=== PATIENT | male | born 1990 | race Caucasian/White ===

== ENCOUNTER 2020-08-15 14:57 | Outpatient (CLI) | payer OTHER ==
--- NOTE | 2020-08-15 15:52 | SLEEP CARE CONSULTATION ---
Information from patient questionnaire entered by Su Jackson. I have reviewed and concur with the information entered by Su Jackson. This document represents the service I personally performed and the decisions made by me, January Morelos MD, [facility]. History of Present Illness Service Date and Time: 08/15/2020 1457 Reason for Visit: New patient Chief Complaint: reports: Unrefreshed sleep, Snoring, Excessive daytime sleepiness, Observed pauses in breathing, Fatigue, Frequent awakenings at night Date of Onset: years Usual bedtime: 10 pm Time it takes to fall asleep: 30 minutes Snores at night: Yes Observed to quit breathing while asleep: Yes Sleeps alone due to snoring: No Number of times waking at night: 2-3 Reasons for waking at night: reports: Other (depends) Toss, Turn, or Twitch while sleeping: Yes Recalls having dreams: No Usually gets out of bed at: 7 am Feels refreshed in the morning: No Morning headache: No Sleepy or fatigued during the day: Yes Ever fallen asleep while driving: No Takes day naps: No Dreams during day naps: Yes Prior sleep studies: No Additional HPI information: I had the pleasure of seeing Mr. Goodman today regarding the possibility of him having a sleep disorder. As you know, he is a 30 year old gentleman who complains of loud snore, observed apneas, and excessive daytime sleepiness. The patient tells me that he normally goes to bed around 10 pm, and it takes him approximately 30 minutes to fall asleep. He has been told that he snores loudly and irregularly at night. He has also been observed to stop breathing in his sleep. His can still sleep in the same bed. He can recall waking up on the average of 2 - 3 times during the night. Most of the time he wakes up because of variety of reasons. He has never awakened because of his own snoring, choking, or having to gasp for air. There is a lot of tossing and turning in his sleep. He has somniloquy (sleep talking) but not somnambulism (sleep walking). Generally there is no recollection of dreams. In the morning he usually gets up out of the bed around 7 a.m. not feeling refreshed nor rested. He usually does not have a morning headache. During the day he complains of feeling sleepy and fatigued. His score on Valdez Sleepiness Scale is 12 out of 24. He never has fallen asleep while driving nor has had any accident due to sleepiness. He usually does not take naps during the day. Upon falling asleep during the day he reports having dreams. He has never had sleep paralysis, experienced cataplexy or symptoms of restless leg syndrome. He reports having impaired concentration during the day. - Parasomnia Symptoms Ever been unable to move upon waking from sleep: No (maybe) Ever felt weak in the knees when startled or emotional: No Bothered by creepy, crawly, restless sensations in legs: No Problems with memory or concentration: Yes Subjective Initial Valdez Sleepiness Scale score: 12 (in 2020) Past Medical History Past Medical History: reports: Asthma Social History The patient's occupation is a [employer]. Patient is and lives in [place]. Have you smoked in the past 12 months: No Alcohol use: Yes Alcohol amount and frequency: 1 drink 1 time a week Caffeine use: Yes Caffeine amount and frequency: alot Family History Family history of sleep disordered breathing: Yes (father) Allergies and Home Medications Drug allergies reviewed: Yes Home medication list reviewed: Yes Review of Systems Cardiovascular: denies: high blood pressure, palpitations, chest pain, irregular heart rate or pulse, leg or foot swelling, have to sleep sitting up, other Respiratory: reports: wheeze Gastrointestinal: denies: heartburn, difficulty swallowing, nausea, vomitting, diarrhea, abdominal pain, other Neurological: reports: headaches Psychiatric: denies: Attention Deficit Hyperactivity, anxiety, depression, mood disorder, claustrophobia, other Ear/Nose/Throat: reports: wisdom teeth removed Endocrine: reports: sluggishness Musculoskeletal: reports: neck pain, back pain Immunologic: reports: sneezing Physical Exam Vital signs obtained and entered by: Dr. Morelos Blood Pressure: 92/60 Cuff size: regular Heart Rate: 65 O2 Saturation: 98 Height: 5 ft 10 in Weight: 160 lb Body Mass Index: 22.9 BMI Classification: Healthy weight Neck circumference: 15.5 Mood/affect: Normal HEENT: No craniofacial malformation Nostrils: partially obstructed Turbinates: swollen Mouth and throat: narrow oropharynx Soft palate: long Hard palate: normal Uvula: normal Uvula visualization: 50% Mallampati Class II Tongue: normal in size Tonsils: small Chin and jaw: normal size and position Neck: normal w/o lymphadenopathy or thyromegaly Impression and Plan IMPRESSION: 1. Obstructive Sleep Apnea-Hypopnea Syndrome, as suggested by history of loud and irregular snoring, observed cessation of breath while asleep, frequent awakenings during the night, unrefreshed sleep, cognitive impairment, and daytime hypersomnolence. Narrow oropharynx is a common predisposing factor for obstructive sleep apnea-hypopnea syndrome. I recommend proceeding to polysomnography to confirm the diagnosis and to assess severity. If he has significant sleep disordered breathing, a manual CPAP titration study will also be performed to find the optimal treatment pressure. I informed the patient of what the sleep studies involve and after some discussion, he agreed to proceed. However, because of the long waiting list for the in-laboratory polysomnography, a home sleep apnea test (HSAT) will first be performed. Plan: 1. Schedule a home sleep apnea test (HSAT). 2. Return for a follow up after the test. Visit Type: In Office Time Spent with Patient (minutes): 15 Provider Statement: I spent 100% of the Face to Face Visit with the patient with greater than 50% spent counseling the patient and coordination of care.
[2020-08-15 15:53] VITALS: BP 92/60
== END 2020-08-15 14:58 | disposition home or self-care (01) ==
LOC: SC 14:57
PROVIDERS: ATTEND Internal Medicine Pulmonary Disease
DX: R06.83 Snoring (principal); R06.81 Apnea, not elsewhere classified; G47.8 Other sleep disorders; R41.89 Other symptoms and signs involving cognitive functions and awareness; G47.10 Hypersomnia, unspecified
CPT/HCPCS: 99202; 99212

== ENCOUNTER 2020-09-12 14:12 | Outpatient (CLI) | payer OTHER | END 2020-09-12 14:13 | disposition home or self-care (01) | LOC: SC 14:12 | PROVIDERS: ATTEND Internal Medicine Pulmonary Disease | DX: Z53.9 Procedure and treatment not carried out, unspecified reason (principal) | CPT/HCPCS: 95806 ==

== ENCOUNTER 2020-09-14 16:26 | Outpatient (CLI) | payer OTHER ==
--- NOTE | 2020-09-14 16:40 | SLEEP CARE CONSULTATION ---
Information from patient questionnaire entered by Pierce Champion. I have reviewed and concur with the information entered by Pierce Champion. This document represents the service I personally performed and the decisions made by me, Darby Dewitt ARNP. History of Present Illness Service Date and Time: 09/14/2020 1620 Initial [place] Sleepiness Scale score: 12 (in 2020) Current Stan[place] Sleepiness Scale score: 13 Additional HPI information: AL VILLAR returns via Telehealth visit to discuss the recently incomplete home sleep study. His brother noticed he was choking in his sleep. He feels fatigued all the time. He chews tobacco to stay awake. He feels he could fall asleep easily during the day. He snores. He has woken up gasping a couple of times. He wakes up mostly to go to the bathroom or to drink water, he doesn't know. He would like to see if he has sleep apnea. He tried to do the HST but the sensor was uncomfortable and he could not keep it on his face for the study. Sleep Study - Results Type of Sleep Study: Home sleep study Prior sleep studies: No Allergies and Home Medications Home medication list reviewed: Yes (no changes) Review of Systems Review of systems same as previous: Yes (no changes) Physical Exam Vital signs obtained and entered by: Telehealth visit to reduce exposure during Covid pandemic Height: 5 ft 10 in Impression and Plan 1. Suspected Obstructive Sleep Apnea-Hypopnea Syndrome, as suggested by a history of loud and irregular snoring, unrefreshed sleep, frequent night awakenings, observed cessation of breath while asleep, and excessive daytime sleepiness. I recommend proceeding to polysomnography since he was not able to tolerate the HST to confirm the diagnosis and to assess severity. If the patient has significant sleep disordered breathing, a manual CPAP titration study will also be performed to find the optimal treatment pressure. I informed the patient of what the sleep studies involve and after some discussion, obtained agreement to proceed. The pathophysiology of obstructive sleep apnea-hypopnea syndrome was discussed with the patient and health risks of cardiovascular and cerebrovascular disease if not treated. Risks of drowsy driving discussed in detail and patient advised to avoid long distance driving and to boat puller at the first sign of drowsiness. Patient agreed to plan. * Schedule polysomnography +- manual CPAP titration study and return in 1-2 weeks after the study to discuss result and initiate therapy. * Avoid long distance driving or driving when feeling sleepy. * Avoid alcohol, sedative and muscle relaxant around bedtime. * Review instructions provided by trained office staff on how to prepare for the sleep study. * Return for follow-up after sleep study completed. Visit Type: Telehealth Video Video Type: VSee Patient Location: car Location of Provider: Office Patient agrees and consents to this telehealth visit type: Yes Time Spent with Patient (minutes): 18 Provider Statement: I spent 100% of the Telehealth Video Call with the patient with greater than 50% spent counseling the patient and coordination of care.
== END 2020-09-14 16:27 | disposition home or self-care (01) ==
LOC: SC 16:26
PROVIDERS: ATTEND Nurse Practitioner Family
DX: R06.83 Snoring (principal); G47.8 Other sleep disorders; R06.81 Apnea, not elsewhere classified; G47.10 Hypersomnia, unspecified

== ENCOUNTER 2020-11-10 11:16 | Outpatient (CLI) | payer OTHER ==
--- NOTE | 2020-11-10 15:56 | XRAY Report ---
PROCEDURE: Cervical Spine 2 View INDICATIONS: CERVICALGIA TECHNIQUE: 3 view(s) of the cervical spine were acquired. COMPARISON: None. FINDINGS: Bones: No fractures or dislocations to the T1 level. The lateral masses of C1 appear intact on the odontoid view. No suspicious bony lesions. There is reversal normal upper cervical spine curvature. Intervertebral disc height is normally preserved. Soft tissues: No prevertebral soft tissue swelling. IMPRESSION: 1. Reversal normal cervical spine curvature which could be due to patient positioning or soft tissue injury/spasm. 2. No fracture. No osseous lesion. If there is continued clinical concern for pathology, then MRI katya uld be considered for further evaluation. Reviewed by: Arelis Pino MD, PhD on 11/10/2020 3:55 PM PDT Approved by: Arelis Pino MD, PhD on 11/10/2020 3:55 PM PDT Station ID: [id number]
== END 2020-11-10 11:17 | disposition home or self-care (01) ==
LOC: DI 11:16
PROVIDERS: ATTEND Physician Assistant Medical
DX: M54.2 Cervicalgia (principal)

== ENCOUNTER 2020-11-26 19:35 | Emergency (ER) | payer OTHER ==
--- OUTSIDE RECORDS SUMMARY | 2020-11-26 19:38 | EXTERNAL MEDICAL SUMMARY RPT | Continuity of Care Document ---
:1990 Demographics Phone Unavailable Preferred Language Unknown Marital Status Unknown Christianity Affiliation Unknown Race Unknown Ethnic Group Unknown Author Organization [facility] [address] [place] [address] Phone Allergies Encounters Medications Problems date description facility [id number] [facility] Results
--- OUTSIDE RECORDS SUMMARY | 2020-11-26 19:49 | EXTERNAL MEDICAL SUMMARY RPT | Continuity of Care Document ---
:1990 Demographics Phone Unavailable Preferred Language Unknown Marital Status Unknown Muslim Affiliation Unknown Race Unknown Ethnic Group Unknown Author Organization [facility] Address [address] [place] [address] Phone Allergies Encounters Medications Problems date description facility [id number] [facility] Results
[2020-11-26] MEDS ORDERED: BACITRACIN ZINC OINT 1 PACKET TOP STA (20:14)
[2020-11-26] MEDS ORDERED: BUFFERED LIDOCAINE 10 ML SYRINGE SUBQ STA (20:14)
--- NOTE | 2020-11-26 20:17 | ED Physician Documentation ---
History of Present Illness - Stated complaint Stated Complaint: LEFT HAND LAC - Chief complaint Chief Complaint: Laceration - Additonal information Additional information: 30-year-old male presents emergency department for evaluation of a left palm laceration sustained this evening when he fell and cut his hand on a rock. Patient is unsure of his last tetanus shot but does not want to receive vaccines of any kind therefore declines tetanus today. We discussed the risks and benefits of tetanus and that it is 100% fatal if He develops tetanus but again he declines. Patient is right-hand dominant. Review of Systems Constitutional: reports: Reviewed and negative Nose: reports: Reviewed and negative Throat: reports: Reviewed and negative Cardiac: reports: Reviewed and negative Respiratory: reports: Reviewed and negative GI: reports: Reviewed and negative : reports: Reviewed and negative Skin: reports: Laceration (s) (Left palm) Musculoskeletal: reports: Reviewed and negative Neurologic: reports: Reviewed and negative PD PAST MEDICAL HISTORY - Present Medications Home Medications: Ambulatory Orders Medication Instructions Recorded Confirmed No Known Home Medications 11/26/20 11/26/20 - Allergies Allergies/Adverse Reactions: Allergies Allergy/AdvReac Type Severity Reaction Status Date / Time No Known Drug Allergies Allergy Verified 11/26/20 19:43 PD ED PE EXPANDED - Extremities Extremities: Normal, Left hand (For your centimeter curvilinear laceration to the left palm. Normal flexion extension and grasp of all digits and fingers. No swelling or ecchymosis.) Results - Vitals Vitals: Vital Signs - 24 hr 11/26/20 19:40 Temperature 36.6 C Heart Rate 64 Respiratory 16 Rate Blood Pressure 131/67 H O2 Saturation 97 Oxygen O2 Source Room air Procedures - Laceration (location) left pal Length in cm: 3.5 Wound type: Curved, Flap, Superficial, Clean Neurovascular status: Sensory intact, Motor intact Tendon involvement: Tendon intact Anesthesia: Lidocaine 1% Wound preparation: Chlorhexadine, Irrigated copiously NS, Multiple flaps aligned Skin layer closure: Size #-0 - enter number (4), Sutures - enter # (5) Other: Patient tolerated well, No complications, Other (Patient declined tetanus immunization) PD MEDICAL DECISION MAKING - ED course Complexity details: reviewed results, re-evaluated patient, d/w patient ED course: 30-year-old male presents emergency department for evaluation of a left palm laceration that is a flap laceration and relatively superficial. 5 sutures were placed into the palm to approximate the wound edges and the flap though it is likely that the superficial layer of skin will ultimately fall off and however this will allow the wound to heal from the inside out. Routine wound care and emergent return precautions were discussed. Patient declined tetanus immunization today Departure - Departure Disposition: 01 Home, Self Care Clinical Impression: Laceration of palm Qualifiers: Encounter type: initial encounter Laterality: left Qualified Code(s): S61.412A - Laceration without foreign body of left hand, initial encounter Condition: Stable Record reviewed to determine appropriate education?: Yes Comments: Your sutures should be removed in 7 to 10 days. In 24 hours you may remove the dressing wash gently with warm soap and water, apply any antibiotic ointment and a simple bandage. Your tetanus is up-to-date. Please attempt to keep your wound clean and dry. Do not submerge it in dirty dishwater or bath water. Return to the emergency department if you have any concerns of infection such as redness, fevers milky drainage increased pain. As we discussed this was a superficial laceration and the flap was sutured down simply to protect the wound underneath it. I do expect the superficial layer of skin to ultimately dry up and fall away.
[2020-11-26 21:11] VITALS: BP 130/65
== END 2020-11-26 21:11 | disposition home or self-care (01) ==
LOC: ED 19:35
DX: S61.412A Laceration without foreign body of left hand, initial encounter (principal); W20.8XXA Other cause of strike by thrown, projected or falling object, initial encounter
CPT/HCPCS: 12002; 99281; 99282; A9270

== ENCOUNTER 2020-12-21 20:40 | Outpatient (CLI) | payer OTHER | END 2020-12-21 20:41 | disposition home or self-care (01) | LOC: SC 20:40 | PROVIDERS: ATTEND Nurse Practitioner Family | DX: G47.8 Other sleep disorders (principal); G47.61 Periodic limb movement disorder | CPT/HCPCS: 95810 ==

== ENCOUNTER 2021-01-23 21:16 | Emergency (ER) | payer OTHER ==
[2021-01-23 21:31] VITALS: BP 111/68
--- NOTE | 2021-01-23 23:45 | ED Physician Documentation ---
History of Present Illness - Stated complaint Stated Complaint: L/R FOOT INJ - Chief complaint Chief Complaint: Ext Problem - History obtained from History obtained from: Patient - History of Present Illness Timing: How many weeks ago (2-3) Pain level max: 0 Pain level now: 0 - Additonal information Additional information: c/o 2-3 weeks of swelling and pain bilateral balls of my feet (per patient) when he wakes up each morning. Pain subsides during the day. He also notes left 2nd toe is red, swollen, with peeling skin. Has not seen a medical professional for these symptoms yet Review of Systems Skin: reports: Rash Musculoskeletal: reports: Extremity pain (dorsum bilateral forefoot QAM), Extremity swelling (left 2nd toe). denies: Back pain, Joint pain, Joint swelling PD PAST MEDICAL HISTORY - Past Medical History Past Medical History: No - Past Surgical History Past Surgical History: No - Present Medications Home Medications: Ambulatory Orders Medication Instructions Recorded Confirmed Clotrimazole 1% Cream [Lotrimin 1% 1 film TOP BID #30 gm 01/24/21 Cream] - Allergies Allergies/Adverse Reactions: Allergies Allergy/AdvReac Type Severity Reaction Status Date / Time No Known Drug Allergies Allergy Verified 01/23/21 21:30 - Social History Does the pt smoke?: No Smoking Status: Never smoker Does the pt drink ETOH?: No Does the pt have substance abuse?: No - Immunizations Immunizations are current?: Yes PD ED PE NORMAL - Vitals Vital signs reviewed: Yes - General General: Alert and oriented X 3, No acute distress, Well developed/nourished - Extremities Extremities: No deformity, No tenderness to palpate, Normal ROM s pain, No edema, Other (left foot second toe is midly swollen, with peeling skin and exposed mild underlying erythema without fluctuance or abnormal warmth to touch. this is limited to medial, lateral, and plantar surfaces of the toe (dorsal surface spared)) Results - Vitals Vitals: Oxygen O2 Source Room air PD MEDICAL DECISION MAKING - ED course Complexity details: considered differential, d/w patient ED course: feet appear normal and nontender except for left 2nd toe. I am not sure what the cause of his QAM foot pain might be, has been ongoing for about 3 weeks and I encouraged him to see his primary care provider regarding this nonemergent c/o. As for his left 2nd toe, appearance is most c/w tinea pedis and will try topical antifungal, rx provided Departure - Departure Disposition: 01 Home, Self Care Clinical Impression: Tinea pedis Condition: Good Instructions: ED Fungal Infec Athlete Foot Prescriptions: Clotrimazole 1% Cream [Lotrimin 1% Cream] 1 film TOP BID #30 gm Discharge Date/Time: 01/24/21 00:15
== END 2021-01-24 00:15 | disposition home or self-care (01) ==
LOC: ED 21:16
DX: B35.3 Tinea pedis (principal)
CPT/HCPCS: 99281; 99282

== ENCOUNTER 2022-09-01 20:51 | Emergency (ER) | payer OTHER ==
[2022-09-01 21:04] VITALS: BP 129/75
[2022-09-01] MEDS ORDERED: BACITRACIN ZINC OINT 1 PACKET TOP STA (21:19)
[2022-09-01] MEDS ORDERED: oxyCODONE 5 MG TABLET PO STA (21:19)
[2022-09-01] MEDS ORDERED: IBUPROFEN 600 MG TABLET PO STA (21:20)
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
== END 2022-09-01 21:40 | disposition home or self-care (01) ==
LOC: ED 20:51
DX: T23.041A Burn of unspecified degree of multiple right fingers (nail), including thumb, initial encounter (principal); X19.XXXA Contact with other heat and hot substances, initial encounter; Y92.009 Unspecified place in unspecified non-institutional (private) residence as the place of occurrence of the external cause
CPT/HCPCS: 99282; 99283; A9270

== ENCOUNTER 2023-04-04 16:10 | Outpatient (CLI) | payer OTHER | END 2023-04-04 23:59 | disposition short-term general hospital (02) | LOC: EMS 16:10 | DX: H92.02 Otalgia, left ear (principal); R68.84 Jaw pain; R50.9 Fever, unspecified; R07.9 Chest pain, unspecified | CPT/HCPCS: A0425; A0427 ==

== ENCOUNTER 2023-09-13 13:07 | Emergency (ER) | payer OTHER ==
[2023-09-13 13:20] VITALS: BP 126/78; O2SAT 97
== END 2023-09-13 13:36 | disposition left against medical advice (07) ==
LOC: ED 13:07
DX: Z53.21 Procedure and treatment not carried out due to patient leaving prior to being seen by health care provider (principal)

== ENCOUNTER 2024-01-30 10:01 | Outpatient (CLI) | payer OTHER ==
--- NOTE | 2024-01-31 20:27 | MRI Report ---
PROCEDURE: Cervical Spine WO INDICATIONS: CERVICALGIA TECHNIQUE: Noncontrast sagittal T1 spin echo and T2 fast spin echo, sagittal STIR, foraminal oblique sagittal T2 fast spin echo, and axial gradient echo or T2 fast spin echo through the cervical spine. COMPARISON: Correlation is made with plain films, 11/10/2020 FINDINGS: Image quality: Excellent. Alignment and Curvature: There is reversal of the normal cervical lordosis, with the apex at the C3- C4 level. No significant AP alignment abnormality can be seen. Bone Marrow: Marrow demonstrates normal overall signal. Spinal Cord: Visualized spinal cord has normal size and signal. No cerebellar tonsillar herniation. Paraspinous Soft Tissues: No paravertebral masses. Prevertebral soft tissues are normal in thicknes s. C2-C3: Level within normal limits. C3-C4: Mild loss of disc height and disc signal are seen. Mild to moderate disc osteophyte complex is seen, with a central/right disc osteophyte protrusion. There is moderate to severe right-sided and at least moderate left-sided neuroforaminal narrowing. Mild to moderate central canal narrowing is s een, with minimal associated mass effect upon the ventral spinal cord. C4-C5: The disc height is relatively well preserved. Mild to moderate disc osteophyte complex is s een, with a mild central disc osteophyte protrusion. Mild facet hypertrophy is seen. There is modera te left-sided and mild right-sided neuroforaminal narrowing. Mild to moderate central canal narrowing is seen. Associated mass effect is seen upon the ventral spinal cord. C5-C6: Mild loss of disc height and disc signal are seen. Mild to moderate disc osteophyte complex i s seen, with a mild central disc osteophyte protrusion. Mild to moderate facet hypertrophy is seen. Moderate bilateral neural foraminal narrowing is seen. Moderate central canal narrowing is seen. Associated mass effect is seen upon the ventral spinal cord. C6-C7: The disc height and disc signal are well preserved. Mild to moderate disc osteophyte complex is seen, which is slightly eccentric to the left. There is mild to moderate facet hypertrophy. Mild bilateral neural foraminal narrowing is seen. No central canal narrowing is seen. C7-T1: Normal in appearance. 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 Reversal of the normal cervical lordosis is seen. This is commonly observed in patients with muscular spasm. Reviewed by: Mervin Rios MD on 01/31/2024 7:26 PM DEE Approved by: Mervin Rios MD on 01/31/2024 7:26 PM DEE Station ID: [id number]
== END 2024-01-30 10:02 | disposition home or self-care (01) ==
LOC: DI 10:01
PROVIDERS: ATTEND Nurse Practitioner Family
DX: G54.9 Nerve root and plexus disorder, unspecified (principal); M47.812 Spondylosis without myelopathy or radiculopathy, cervical region